=== PATIENT | female | born 2000 ===

== ENCOUNTER 2024-09-07 06:22 | Day surgery (SDC) | payer BC, SELFPAY ==
--- OUTSIDE RECORDS SUMMARY | 2024-09-07 06:27 | XMS_ITS | Clinical Summary ---
Author Organization [employer] [facility] Address [place], [place] [address] Care Team Providers Care Leather Piece Inspector Name Role Phone Merari Gonzáles Primary Care Provider [phone] Allergies No known active allergies Medications medication order composer IUDin place, placed in 2019, patient unsure which type of IUD-she will follow up with this information 4 Active SUMAtriptan (IMITREX) 50 mg tabletIndication s:Migraine without aura and without status migrainosus, not intractable Take 1 Tablet (50 mg) by mouth every 2 hours if needed for Migraine. Give at minimum 2hrs apart. Max Dose: 200mg per 24hrs. 10 Tablet 3 4 Active nortriptyline (PAMELOR) 10 mg capsuleIndicatio ns:Migraine without aura and without status migrainosus, not intractable Take 1 capsule (10 mg) at bedtime. After 1 week, increase to 2 capsules (20 mg) at bedtime. 180 Capsule 3 4 Active Additional Information Patient taking differently: 20 mg Oral BEDTIME, Take 1 capsule (10 mg) at bedtime. After 1 week, increase to 2 capsules (20 mg) at bedtime., Reported on 08/31/2024 meloxicam 15 mg tabletIndication s:Ganglion cyst Take 1 Tablet (15 mg) by mouth once daily. Workers compensation. 30 Tablet 2 4 Active Active Problems Problem Noted Date Diagnosed Date Pap smear for cervical cancer screening 12/16/19 24 Overview (12/16/2023): 12/2023 NIL. Plan: Pap/HPV due 12/2026. 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) 08/03/2024 Travel from Last 3 Months Immunizations Name Administration Dates Next Due COVID-19 vaccine (Moderna 100mcg/0.5mL) GISSEL SCHMITZ 03/20/2021 DTaP 10/12/2004, 1,04/30/2000,02/06,1999 HIB-HepB (Comvax) 09/27/2000,02/07/2000,11/27/19 00 Hepatitis A (Peds) 09/24/2011,03/22/2011 Human Papilloma Virus Vaccine 09/24/2011, 011,03/22/2011 Inactivated Polio Vaccine 10/12/2004,,02/07/2000,11/26 Influenza, IIV3 (Age >=3 years) 06/20/2020 MENINGOCOCCAL VACCINE 2 VIAL 2MO-55YO (MENVEO) 02/21/2016 MMR 10/12/2004,01/13/2001 Meningococcal Vaccine (Menactra) 03/22/2011 Pneumococcal conj 7-Valent (Prevnar 7) 1,04/30/2000,02/07/2000 Tdap 12/03/2023,03/22/2011 Varicella Vaccine 07/28/2008,01/13/2001 Family History Medical History Relation Name Comments Good Health Father Good Health Mother Relation Name Status Comments Father Mother Social History Tobacco Use Types Packs/Day Years Used Date Smoking Tobacco: Never Smokeless Tobacco: Never Tobacco Cessation:Counseling Given: Not Answered Alcohol Use Standard Drinks/Week Comments Yes 0 (1 standard drink = 0.6 oz pur e alcohol) minimal [facility] Utilities Answer Date Recorded Do you have trouble paying f or utilities (for example, heat, electricity, water, phone)? Yes 08/03/2024 PHQ-2 Answer Date Recorded PHQ-2 TOTAL SCORE 1 12/03/2023 Social Connections Answer Date Recorded Do you often feel lonely or isolated from those around you? 0 08/03/2024 Alcohol Use Answer Date Recorded How often do you have a drink containing alcohol ? 2 08/03/2024 How many drinks containing a lcohol do you have on a typical day when you are drinking? 0 08/03/2024 How often do you have five or more drinks on one occasion? 0 08/03/2024 Financial Resource Strain Answer Date R ecorded Difficulty of Paying Living Expenses 3 08/03/2024 Difficulty of Paying Living Expenses Not on file 08/03/2024 Food Insecurity Answer Date Recorded Do you worry your food will run out before you are able to buy more? 1 08/03/2024 Transportation Needs Answer Date Record ed Does lack of transportation keep you from medica l appointments? 1 08/03/2024 Does lack of transportation keep you from work, meetings or getting things that you need? 1 08/03/2024 Housing Stability Answer Date Recorded What is your housing situation today? 1 08/03/2024 Comments No Sex and Gender Information Value Date Recorded Sex Assigned at Not on file Legal Sex Female 1:23 PM CDT Gender Identity Not on file Sexual Orientation Not on file Obstetrics History Last Filed Vital Signs Vital Sign Reading Time Taken Comments Blood Pressure 102/70 08/31/2024 1:25 PM FACILITY SERVICE MANAGER Pulse 88 08/31/2024 1:25 PM FACILITY SERVICE MANAGER Temperature 36.2 C (97.2 F) 08/03/2024 2:19 PM FACILITY SERVICE MANAGER Respiratory Rate 18 06/09/2023 2:05 PM CDT Oxygen Saturation 99% 08/31/2024 1:25 PM FACILITY SERVICE MANAGER Inhaled Oxygen Concentration - - Weight 74.4 kg (164 lb) 08/31/2024 1:25 PM FACILITY SERVICE MANAGER Height 168.1 cm (5' 6.2) 12/03/2023 1:52 PM CDT Body Mass Index 26.31 12/03/2023 1:52 PM CDT Plan of Treatment Health Maintenance Due Date Last Done Comments HIV for age 15-65 2014 Hepatitis C screening for ag e 18-79 2017 COVID-19 vaccine series ( season) 2024 05/19/2021, 03/20/2021 Influenza for age 9-49 05/03/2024 06/20/2020 BMI (ht and wt on same day) for age 18+ 12/02/2024 12/03/2023 Chlamydia for age 16-24 12/02/2024 12/03/2023 Depression screening for age 12+ 12/02/2024 12/03/2023 Pap test for age 21-65 12/02/2026 12/03/2023 Tetanus booster 12/02/2033 12/03/2023, 03/22/2011 Pneumococcal series for age 6-49 Aged Out 01/13/2001, 04/30/2000, 02/07/2000 No longer eligible based on patient's age to complete this topic HPV series for age 9-26 Completed 09/24/19 12, 05/25/2011, 03/22/2011 Tdap Completed 12/03/2023, 03/22/2011 Procedures Procedure Name Priority Date/Time Associated Diagnosis Comments CHLAMYDIA TRACH PROBE Routine 12/03/2023 2:23 PM CDT Screening for chlamydial disease TRANSIT COACH OPERATOR THIN PREP PAP SCREEN IMAGED Routine 12/03/2023 2:23 PM CDT Pap smear for cervical cancer screening from Last 3 Months or Most Recently Relevant to Health Maintenance Results * TRANSIT COACH OPERATOR THIN PREP PAP SCREEN IMAGED (12/03/2023 2:23 PM CDT) Case Report Gynecologic Cytology Report Case: [id number] Authorizing Provider: Merari Gonzáles PA Collected: 12/03/2023 1423 Ordering Location: [facility] Received: 12/03/2023 1616 Clinic First Screen: Tali Pineda Specimen: TRANSIT COACH OPERATOR ThinPrep Vial Screening, Cervical 12/15/2023 11:58 AM CDT [facility] [place] [facility] ENTRAL LABORATORY INTERPRETATION/ RESULT NEGATIVE FOR INTRAEPITHELIAL LESION OR MALIGNANCY (NIL) (none) 12/15/2023 11:58 AM CDT [facility] ENTRAL LABORATORY IMEN ADEQUACY Satisfactory for evaluation No endocervical component seen 12/15/2023 11:58 AM CDT [facility] [place] [facility] EN[facility]AL LAB[facility] Date of LMP unknown 12/15/2023 11:58 AM CDT [facility] EN[facility] LAB[facility] Last Pap Date none 12/15/2023 11:58 AM CDT [facility] EN[facility] Last Pap Result First Pap/Unknown 11:58 AM CDT [facility] ENTRAL LABORATORY Abnormal Pap or Cinebar Bx in last 5 years No 12/15/2023 11:58 AM CDT [facility] [place] [facility] Menstrual Status Hormonally Suppressed 12/15/2023 11:58 AM CDT [facility] ENTRAL LABORATORY Cinebar Bx Done Today No 12/15/2023 11:58 AM CDT [facility] [place] [facility] ENTRAL LABORATORY Additional Information None given 12/15/2023 11:58 AM CDT [facility] ENTRAL LABORATORY Comment: Cytology is screened at [facility] - [address] [address] and [facility] - [address] [place] [address] and [facility] - [address] [place] [address] Interpreted at [facility] - [address], [place] [address] Automated Review Successful 12/15/2023 11:58 AM CDT [facility] ENTRAL LABORATORY Comment:Specimen processed s uccessfully by automated associate professor of biology device, ThinPrep Imaging System, [email or web address] Note The pap test is a screening technique, not a diagnostic procedure. It is used primarily to screen for squamous cancers and precursor lesions. Published studies have shown that it is subject to both false negative and false positive results. The pap test should not be used as the sole means to diagnose or exclude pre-malignant and malignant lesions. 12/15/2023 11:58 AM CDT [facility] EN[facility]AL LABORAT[facility] Other (Cervical) Non-Blood / Unknown 12/03/2023 2:23 PM CDT 12/03/2023 4:16 PM CDT Merari BISHOP PATHOLOGY/CYTOLOGY Final R esult Performing Organization Address [facility]/ZIP Co de Phone Number [facility] LABORAT[facility]-CENTRAL LABORATORY [address] [place] [address], * CHLAMYDIA TRACH PROBE (12/03/2023 2:23 PM CDT) CHLAMYDIA PROBE Negative 12/04/2023 6:24 PM CDT [facility] TRAL LABORAT[facility] Other ENDOCERVICAL CYTOLOGIC MATERIAL / Unknown Non-Blood / Unknown 12/03/2023 2:23 PM CDT 12/03/2023 4:16 PM CDT Merari BISHOP MICROBIOLOGY Final Resu lt Performing Organization Address City/[facility]/ZIP Co de Phone Number [facility] [address] [place] [address], from Last 3 Months or Most Recently Relevant to Health Maintenance Insurance [facility] [employer] Care Teams Leather Piece Inspector Relationship Specialty Start Date End Date Merari Gonzáles [place] [address] PCP - General Physician Hoist Cylinder Loader 01/03/24
--- OUTSIDE RECORDS SUMMARY | 2024-09-07 06:27 | XMS_ITS | Clinical Summary ---
Author Organization [facility] Address [address] [place] [address] Care Team Providers Care Resort Host Name Role Phone Cierra Rojas MD Primary Care Provider [phone] [facility], [facility] Family Unavailable Allergies No known active allergies Medications phenazopyridine (PYRIDIUM) 200 mg oral tablet Take 1 tablet (200 mg) by mouth three times a day as needed. 12 tablet 11/10/2020 Active Family History Medical History Relation Comments No Known Problems Father No Known Problems Maternal Grandfather No Known Problems Maternal Grandmother No Known Problems Mother No Known Problems Paternal Grandfather No Known Problems Paternal Grandmother Cancer Neg Family Hx Diabetes Neg Family Hx Heart Disease Neg Family Hx Stroke Neg Family Hx Relation Status Comments Father Alive Maternal Grandfather Alive Maternal Grandmother Alive Mother Alive Paternal Grandfather Alive Paternal Grandmother Alive Sister Alive Social History Tobacco Use Types Packs/Day Years Used Date Smoking Tobacco: Smoker, Current Status Unknown Smokeless Tobacco: Never Comments:3 cig day. Comments No Sex and Gender Information Value Date Recorded Sex Assigned at Not on file Legal Sex Female 10:02 AM CDT Gender Identity Not on file Sexual Orientation Not on file Last Filed Vital Signs Vital Sign Reading Time Taken Comments Blood Pressure 102/58 11/10/2020 1:51 PM TEST ENGINEERING MANAGER Pulse 79 11/10/2020 1:51 PM TEST ENGINEERING MANAGER Temperature 36.8 C (98.2 F) 11/10/2020 1:51 PM TEST ENGINEERING MANAGER Respiratory Rate 12 11/10/2020 1:51 PM TEST ENGINEERING MANAGER Oxygen Saturation 98% 11/10/2020 1:51 PM TEST ENGINEERING MANAGER Inhaled Oxygen Concentration - - Weight 62.1 kg (137 lb) 11/10/2020 1:51 PM TEST ENGINEERING MANAGER Height 165.1 cm (5' 5) 11/10/2020 1:51 PM TEST ENGINEERING MANAGER Body Mass Index 22.8 11/10/2020 1:51 PM TEST ENGINEERING MANAGER Plan of Treatment Health Maintenance Due Date Last Done Comments Chlamydia/Gonorrhea Screening 1999 Evaluate Sexual History 1999 Hepatitis C Screening 1999 Pap Smear 1999 Anxiety Screening (JOSE-2) 2000 Depression Assessment (PHQ-2) 2000 Adult Tetanus Booster 03/22/2021 03/22/2011 COVID-19 Vaccine (2023-2 5 season) 2024 Influenza Vaccine (#1) 2024 RSV Vaccines (1 - 1-dose 75+ series) 2074 Pneumococcal <65 Aged Out 01/13/2001, 04/30/2000, 02/07/2000 No longer eligible based on patient's age to complete this topic HPV Vaccine Completed 09/24/2011, 05/25/2011, 03/22/2011 Insurance [facility] [employer] Care Teams Resort Host Relationship Specialty Start Date End Date Cierra Rojas MD [address] [place], [place] [address] PCP - General Family Medicine 11/15/20 [facility] [address] [facility] [address] [place] [address] PCP - Primary Care Clinic 09/26/23
--- OUTSIDE RECORDS SUMMARY | 2024-09-07 06:27 | XMS_ITS | Referral Summary ---
Author Organization [facility] Address [address] [place] [address] Care Team Providers Care Fishing Vessel Deckhand Name Role Phone Cierra Rojas MD Primary Care Provider [phone] [facility], [facility] Family Unavailable Allergies No known active allergies Medications phenazopyridine (PYRIDIUM) 200 mg oral tablet Take 1 tablet (200 mg) by mouth three times a day as needed. 12 tablet 11/10/2020 Active Social History Tobacco Use Types Packs/Day Years [...] Comments Blood Pressure 102/58 11/10/2020 1:51 PM LOG HAULER Pulse 79 11/10/2020 1:51 PM LOG HAULER Temperature 36.8 C (98.2 F) 11/10/2020 1:51 PM LOG HAULER Respiratory Rate 12 11/10/2020 1:51 PM LOG HAULER Oxygen Saturation 98% 11/10/2020 1:51 PM LOG HAULER Inhaled Oxygen Concentration - - Weight 62.1 kg (137 lb) 11/10/2020 1:51 PM LOG HAULER Height 165.1 cm (5' 5) 11/10/2020 1:51 PM LOG HAULER Body Mass Index 22.8 11/10/2020 1:51 PM LOG HAULER Plan of Treatment Not on file Insurance [facility] [employer] Care Teams Fishing Vessel Deckhand Relationship Specialty Start Date End Date Cierra Rojas MD [address] [address] PCP - General Family Medicine 11/15/20 [facility] [address] [address] PCP - Primary Care Clinic 09/26/23
[2024-09-07 06:43] VITALS: BP 117/64; PULSE 88; RESP 16; TEMP 36.7; O2SAT 99; BMI 26.3
[2024-09-07] MEDS: 0.9 % SODIUM CHLORIDE 500 ML 500 ML 100 ML IV (06:49)
[2024-09-07] MEDS: SODIUM CHLORIDE 0.9 % (FLUSH) 10 ML SYRINGE IVF (06:49)
[2024-09-07 07:00] LABS: Ur HCG Qualitative* Negative (Negative)
--- NOTE | 2024-09-07 07:01 | W.PM.H&PU ---
History & Physical Update History & Physical Update H&P Reviewed and patient assessed: No changes noted
[2024-09-07] MEDS: fentaNYL 100 MCG/2 ML inj IVP (07:15)
[2024-09-07] MEDS: MIDAZOLAM HCL 1 MG/ML inj 2 MG IVP (07:15)
[2024-09-07 07:16] VITALS: BP 116/82; PULSE 73; RESP 16; O2SAT 98
--- NOTE | 2024-09-07 07:22 | SUR.PREOP ---
TIME?OUT:?0714 PT/RN/MDA?VERIFICATION?OF?SURGICAL?SITE,?PROCEDURE,?AND?CONSENT OBTAINED?PRIOR?TO?INVASIVE?PROCEDURE. all in agreement.
[2024-09-07] MEDS: CEFAZOLIN 2 GM in 0.9 % SODIUM CHLORIDE Mini-bag 100 ML IVPB (07:31)
--- NOTE | 2024-09-07 07:54 | P.NB_ITS ---
Nerve Block Nerve Block Time Seen by Provider: 07:14 Date Seen: 09/07/24 Type of block requested by surgeon for post-operative analgesia: axillary Side: left Time out performed: Yes Verification of patient name: Yes Verification of date of : Yes Site marking: site marked Name of person performing procedure: Olvin Continuous monitoring Was continuous monitoring of O2 sat, B/P, isobutylene operator chief, recorded every 15 minutes?: Yes Procedure Checklist: sterile prep, needles and gloves Ultrasound guided. Images saved: Yes Medications given in 5ml increments after negative aspiration: Ropivicaine %: 0.5 mL: 8 Needle gauge: 22 and Lidocaine %: 2 mL: 17 Patient tolerated procedure well: Yes Additional comments: Needle noted adjacent to nerve Block Charges Block Charge (with Pro Fee): Brachial Plexus Use of Ultrasound Machine for Block: Yes- US Guidance/pain block
[2024-09-07 08:05] VITALS: BP 113/80; PULSE 81; RESP 16; TEMP 36.7; O2SAT 95
--- NOTE | 2024-09-07 08:11 | W.ANESCHARGE ---
Anesthesia Charges Start Date/Time Anesthesia Start Date: 09/07/24 Anesthesia Start Time: 07:20 Stop Date/Time Anesthesia Stop Date: 09/07/24 Anesthesia Stop Time: 08:09
[2024-09-07 08:15] VITALS: BP 118/78; PULSE 79; RESP 16; O2SAT 98
[2024-09-07 08:30] VITALS: BP 115/77; PULSE 80; RESP 16; O2SAT 98
[2024-09-07 08:45] VITALS: BP 120/80; PULSE 78; RESP 16; O2SAT 98
--- NOTE | 2024-09-07 08:49 | P.ORPRC_ITS ---
Procedure Note Date of procedure: 09/07/24 Procedure: PREOPERATIVE DIAGNOSIS: 1. Left volar, radial wrist benign cyst-suspect ganglion cyst POSTOPERATIVE DIAGNOSIS: 1. Left volar, radial wrist benign cyst-ganglion cyst PROCEDURE: 1. Left volar, radial wrist benign cyst open excision SURGEON: Junaid Wu MD. CERTIFIED MAINTENANCE WELDER: Frank Mancini PA-C - Of note, an investment sales assistant was critical for this case to aid in patient positioning, tissue retraction, limb manipulation/positioning, patient safety, & closure. ANESTHESIA: General LMA EBL: 1 mL IMPLANTS: None TOURNIQUET: 15 minutes at 225 torr SPECIMEN: Left volar, radial wrist cyst COMPLICATIONS: None evident INDICATIONS: The patient is a pleasant 23-year-old female who has experienced left volar, radial wrist benign cyst/growth associated with pain that has progressively gotten worse. Nonoperative management has been tried but unsuccessful. Given the failure of nonoperative management, and how this affects daily life, surgery was recommended. DESCRIPTION OF PROCEDURE: Following a thorough discussion of risks, benefits, and alternatives consent was obtained and the operative extremity was marked. The patient was brought to the operating room and placed supine on the operating table. No antibiotics were administered as this was planned to be a local case only. Proper time-out was performed identifying proper patient, site, and procedure. The operative extremity was prepped and draped in the appropriate sterile fashion using ChloraPrep. The limb was exsanguinated and the tourniquet inflated. A longitudinal incision was made on the volar, radial aspect of the left wrist centered over the growth/cyst/bone. Sharp incision through the skin, and blunt dissection through subcutaneous tissue allowed us to protect crossing neurologic structures. The cyst was immediately encountered and mobilized from the surrounding tissue. It did have a stalk that seem to go down deep towards the 1st CMC joint region near the base of the thenar musculature. Bipolar cautery was utilized at the stalk. The cyst was sent for permanent pathology. At this stage, the tourniquet was deflated and hemostasis achieved. Closure was performed with 3-0 Vicryl and 4-0 and Monocryl. Soft dressings were applied, and the patient was awoken/transferred to the recovery room in stable condition. PLAN: 1. Encourage elevation of the operative extremity. 2. Range of motion of the operative extremity/digits as tolerated. 3. Ibuprofen, acetaminophen and/or oxycodone as needed for pain. 4. Follow up with PA visit in 12-16 days for wound check and
== END 2024-09-07 09:08 | disposition home or self-care (01) ==
PROVIDERS: Anesthesiology; PCP Physician Assistant; Visit Provider Orthopaedic Surgery Sports Medicine
PROC: (CPT 25111; principal; 2024-09-07 07:15)
DX: M67.432 Ganglion, left wrist (principal); G89.18 Other acute postprocedural pain
CPT/HCPCS: 25111; 01810; 64415; 76942; 81025; 88304; J0690; J1100; J2250; J2405; J2704; J2795; J3010; J3490; J7030